=== PATIENT | male | born 1940 | race Caucasian/White ===

== ENCOUNTER 2018-12-15 06:23 | Inpatient (IN) | payer MEDICARE, BC ==
[~2018-12-15] VITALS: Ht 188 cm; Wt 99.5 kg
[~2018-12-15 06:23] MED LIST: ALIGN; CARDI-OMEGA1000 MG PO; COQ(10)1010 MG PO; DUO-KAPS1 CAP PO; FLOMAX0.4 MG PO; FOLIC ACID1 MG PO; IBU PO; LYCOPENE PO; MEDI-FIRST ASP325 MG PO; NATURAL E400 IU PO; NEXIUM 40MG40 MG PEG; NIACIN500 MG PO; RITE AID NATU200 MCG PO; VITAMIN C500 MG PO; ZITHROMAX500 M2 PO
[2018-12-15 07:27] LABS: BASO % 0.2 % (0.0-2.0); EOS % 0.3 % (0-4.0); GRAN % 89.7 % (42.2-75.2); HEMOGLOBIN 11.8 g/dl (13.5-18.0); LYMPH # 0.4 (1.2-3.4); LYMPH % 3.3 % (20.0-51.0); MEAN CELL VOLUME 92 fl (80.0-100.0); MEAN CORPUSCULAR HEMOGLOBIN 32 pg (27.0-31.0); MEAN CORPUSCULAR HGB CONC 35 g/dl (33.0-37.0); MEAN PLATELET VOLUME 9.3 fl (7.4-10.4); MONO # 0.8 (0.1-0.6); MONO % 5.9 % (1.7-9.3); PLATELET COUNT 154 K/mm3 (130-400); RED BLOOD COUNT 3.72 M/mm3 (4.20-5.60); REDCELL DISTRIBUTION WIDTH-CV 13.4 % (11.5-14.5)
[2018-12-15 07:28] LABS: HEMATOCRIT 34.2 % (42.0-52.0)
[2018-12-15 07:33] LABS: COLLECTION METHOD CLEAN CATCH
[2018-12-15 07:37] LABS: ALBUMIN 3.4 gm/dL (3.5-5.0); BILIRUBIN,TOTAL 1.3 mg/dL (0.0-1.0); CALCIUM 8.9 mg/dL (8.4-10.2); CREATININE, serum 0.89 (0.66-1.25); POTASSIUM 3.8 mmol/L (3.4-5.0); TOTAL PROTEIN 6.6 gm/dL (6.4-8.2)
[2018-12-15 07:40] LABS: MUCOUS Present /lpf; PH 6 (5-8); SQUAMOUS EPITHELIAL None Seen /hpf; URINE APPEARANCE Clear; URINE BACTERIA None Seen /hpf; URINE BILIRUBIN Negative (NEGATIVE); URINE BLOOD Negative (NEGATIVE); URINE COLOR Yellow; URINE GLUCOSE Negative (NEGATIVE); URINE KETONE Negative (NEGATIVE); URINE LEUKOCYTE ESTERASE Negative (NEGATIVE); URINE NITRATE Negative (NEGATIVE); URINE PROTEIN(semi-quant) Negative (NEGATIVE); URINE RBC 0-2 /hpf; URINE UROBILINOGEN Negative (NEGATIVE)
[2018-12-15 07:48] LABS: C-REACTIVE PROTEIN 22.9 mg/dL (0.0-0.9)
[2018-12-15] MEDS ORDERED: COMBIGAN 0.2%-0.5 ML OU ×2 (08:37→10:38)
[2018-12-15] MEDS ORDERED: PROSCAR 5MG5 MG PO (08:37)
[2018-12-15] MEDS ORDERED: FLOMAX 0.40.4 MG/CAP PO (08:37)
[2018-12-15] MEDS ORDERED: LUMIGAN 2.5 ML2.5 M1 OP (08:38)
[2018-12-15] MEDS ORDERED: ASPIRIN 81M81 MG/TA2 PO (08:38)
[2018-12-15] MEDS ORDERED: MOTRIN 200200 MG/TAB PO (09:03)
[2018-12-15] MEDS ORDERED: VITAMINC1000TA (09:03)
[2018-12-15] MEDS ORDERED: MULTI VITAMINS1 TAB PO (09:03)
[2018-12-15] MEDS ORDERED: THE MEDICINE S200 M2 PO (09:04)
[2018-12-15] MEDS ORDERED: VITAMIN D 1001000 IU PO (09:04)
[2018-12-15] MEDS ORDERED: VITAMIN E1000 U/CAP (09:04)
[2018-12-15] MEDS ORDERED: SELENOMAX200 MC1 (09:04)
[2018-12-15] MEDS ORDERED: EPA FISH OIL1 SGL PO (09:05)
[2018-12-15] MEDS ORDERED: VITAMIN FLUSH-F1 CAP PO (09:05)
[2018-12-15] MEDS ORDERED: PROBIOTIC-MAJOR PO (09:05)
[2018-12-15] MEDS ORDERED: MAGNESIUM250 M1 PO (09:05)
[2018-12-15] MEDS ORDERED: ASPIRIN 32325 MG/TAB PO (09:52)
[2018-12-15 10:01] VITALS: BP 112/56; PULSE 69; TEMP 98.8
--- NOTE | 2018-12-15 10:15 | NUR ---
PATIENT ADMITED INTO ROOM 323 FROM ER WITH DIVERTICULITIS. A&O. VSS. DENIES PAIN OR NAUSEA AT THIS TIME. PATIENT RECEIVED DILAUDID & ZOFRAN IN ER. IV ZOSYN INFUSING INTO RIGHT FORARM VIA PUMP. ABDOMIN IS SOFT, ROUND AND WITH POSITIVE BOWL SOUNDS. HEAD TO TOE ASSESSMENT WNL. AT BEDSIDE. ORIENTED TO ROOM. CALL LIGHT IN REACH.
[2018-12-15] MEDS ORDERED: VITAMIN C500 MG PO (10:37)
[2018-12-15] MEDS ORDERED: NATURAL MAGNES200 MG PO (10:43)
[2018-12-15 12:01] VITALS: BP 119/55; PULSE 75; TEMP 98.3
--- NOTE | 2018-12-15 13:00 | NUR ---
PATIENT AMBULATING IN HALLWAYS INDEPENDENTLY WITH STEADY GAIT. NO COMPLAINTS AT THIS TIME.
[2018-12-15 15:57] VITALS: BP 115/49; PULSE 81; TEMP 102
[2018-12-15 17:42] VITALS: TEMP 99
[2018-12-15 20:30] VITALS: BP 100/52; PULSE 71; TEMP 97.7
--- NOTE | 2018-12-15 21:00 | NUR ---
Patient is in bed, alert and oriented x4. Has IVF to right forearm infusing without redness or swelling. Abdomen soft, bowel sounds active. Denies pain at this time. Up ad gordon in room and hallway.
[2018-12-16] VITALS: BP 125/60; PULSE 66; TEMP 98.1
--- NOTE | 2018-12-16 04:30 | NUR ---
Patient awake, up to bathroom to urinate. Reports passing gas and some "mucus" like stool only. Denies pain at this time.
[2018-12-16 04:41] VITALS: BP 120/51; PULSE 69; TEMP 98.5
--- NOTE | 2018-12-16 06:58 | NUR ---
Report from Denise KLEIN.
[2018-12-16 07:47] VITALS: BP 121/55; PULSE 65; TEMP 99.1
[2018-12-16 08:20] LABS: BASO % 0.4 % (0.0-2.0); EOS # 0.2 (0.0-0.7); EOS % 1.6 % (0-4.0); GRAN # 9.5 (1.4-6.5); GRAN % 83.5 % (42.2-75.2); HEMOGLOBIN 10.8 g/dl (13.5-18.0); LYMPH # 0.7 (1.2-3.4); LYMPH % 5.8 % (20.0-51.0); MEAN CELL VOLUME 92 fl (80.0-100.0); MEAN CORPUSCULAR HEMOGLOBIN 32 pg (27.0-31.0); MEAN CORPUSCULAR HGB CONC 34 g/dl (33.0-37.0); MEAN PLATELET VOLUME 9.3 fl (7.4-10.4); MONO % 8.3 % (1.7-9.3); PLATELET COUNT 153 K/mm3 (130-400); REDCELL DISTRIBUTION WIDTH-CV 13.5 % (11.5-14.5)
[2018-12-16 08:26] LABS: HEMATOCRIT 31.4 % (42.0-52.0)
[2018-12-16 08:33] LABS: CREATININE, serum 0.86 (0.66-1.25); POTASSIUM 3.6 mmol/L (3.4-5.0)
--- NOTE | 2018-12-16 10:15 | NUR ---
PT UP TO SHOWER INDEPENDENTLY.
--- NOTE | 2018-12-16 12:08 | NUR ---
PT UP TO SHOWER AFTER WALKING HALLS INDEPENDENTLY.
[2018-12-16 12:10] VITALS: BP 120/63; PULSE 64; TEMP 98.3
--- NOTE | 2018-12-16 12:34 | NUR ---
R D Manager offered to pray but nothing needed at this time. R D Manager visited with patient and family in room.
[2018-12-16 17:27] VITALS: BP 126/62; PULSE 70; TEMP 99
--- NOTE | 2018-12-16 18:02 | NUR ---
Plan is to return home with Faye as care support . Patient reportst aht he is independent and able to transport self home. Patint reports that his PCP is Dr. Owens. Patient indicates that he obtains RX from [facility]. Declines the home health services or need. Denies he use of any DME equipment. No additional needs identified.
[2018-12-16 19:40] VITALS: BP 122/53; PULSE 82; TEMP 99.9
--- NOTE | 2018-12-16 21:00 | NUR ---
Patient has been up in chair and up in room independently. Denies pain to abdomen, just feels "bloated" and has gas. Voiding in toilet without problem. IVF infusing to right forearm without redness or swelling. Taking clear liquids, abdomen soft.
[2018-12-17] VITALS (7 sets, daily range): BP systolic 108–145; BP diastolic 51–73; PULSE 58–90; TEMP 97.4–99
--- NOTE | 2018-12-17 04:30 | NUR ---
Patient awake, reports feeling better this AM. Afebrile. Up ad gordon in room.
--- NOTE | 2018-12-17 10:00 | NUR ---
Patient alert and oriented, answers questions appropriately. See assessment. Abdomen soft, non tender, non distended. Bowel sounds active x4 quads. +Flatus. Requests for diet advance. Dr Ruvalcaba in to see patient. No c/o pain or discomfort at this time.
--- NOTE | 2018-12-17 21:00 | NUR ---
Patient had shower this shift. IV site to right forearm without redness or swelling. Takes oral meds at this time. VSS, afebrile. Up ad gordon in room. Tolerating low fiber diet without nausea, reports some bloating. No loose stools reported, denies pain.
[2018-12-18 04:00] VITALS: BP 135/65; PULSE 67; TEMP 97
--- NOTE | 2018-12-18 06:00 | NUR ---
Offers no concerns, reports liquid stool this AM.
[2018-12-18 08:17] VITALS: BP 126/65; PULSE 73; TEMP 98
[2018-12-18] MEDS ORDERED: LEVAQUIN 5500 MG/TA1 PO (11:56)
[2018-12-18] MEDS ORDERED: FLAGYL500 MG PO (11:57)
[2018-12-18 12:58] VITALS: BP 128/69; PULSE 666; TEMP 98.1
--- NOTE | 2018-12-18 14:00 | NUR ---
Discharge instructions reviewed with patient and spouse, verbalized understanding. Discharged ambulatory to auto/home with family at 1400.
--- NOTE | 2018-12-18 14:25 | NUR ---
Patient will discharge home today. SW presented IM to patient. He signed and was provided a copy.
== END 2018-12-18 14:00 | disposition home or self-care (01) | DRG 392 ==
LOC: COL.ER 06:23 → SURG 08:41
PROVIDERS: Emergency Medicine; ADMIT Surgery
DX: K57.20 Diverticulitis of large intestine with perforation and abscess without bleeding (principal); N40.0 Benign prostatic hyperplasia without lower urinary tract symptoms; H40.9 Unspecified glaucoma
CPT/HCPCS: A4216; J0696; J1170; J2405; J2543; J7030; J7120; Q9967

== ENCOUNTER → 2020-02-25 | Outpatient (CLI) | payer BC ==
[~2020-02-25] MED LIST changes: +ASPIRIN 32325 MG/TAB PO; +ASPIRIN 81M81 MG/TA2 PO; +COMBIGAN 0.2%-0.5 ML OU; +EPA FISH OIL1 SGL PO; +FLAGYL500 MG PO; +FLOMAX 0.40.4 MG/CAP PO; +LEVAQUIN 5500 MG/TA1 PO; +LUMIGAN 2.5 ML2.5 M1 OP; +MAGNESIUM250 M1 PO; +MOTRIN 200200 MG/TAB PO; +MULTI VITAMINS1 TAB PO; +NATURAL MAGNES200 MG PO; +PROBIOTIC-MAJOR PO; +PROSCAR 5MG5 MG PO; +SELENOMAX200 MC1; +THE MEDICINE S200 M2 PO; +VITAMIN D 1001000 IU PO; +VITAMIN E1000 U/CAP; +VITAMIN FLUSH-F1 CAP PO; +VITAMINC1000TA
== END ==
LOC: COL.RAD 13:44
DX: M18.12 Unilateral primary osteoarthritis of first carpometacarpal joint, left hand (principal)
CPT/HCPCS: J3301; Q9967

== ENCOUNTER → 2020-03-26 | Outpatient (CLI) | payer BC | LOC: COL.RAD 09:45 | DX: R10.10 Upper abdominal pain, unspecified (principal) ==

== ENCOUNTER 2020-09-22 20:19 | Emergency (ER) | payer BC ==
[~2020-09-22] VITALS: Ht 188 cm; Wt 95.5 kg
[2020-09-22 20:55] VITALS: TEMP 100.5
[2020-09-22 21:47] LABS: BASO # 0.1 (0.0-0.2); BASO % 0.3 % (0.0-2.0); EOS % 0.3 % (0-4.0); GRAN # 13.2 (1.4-6.5); HEMOGLOBIN 11.5 g/dl (13.5-18.0); LYMPH # 0.4 (1.2-3.4); LYMPH % 2.6 % (20.0-51.0); MEAN CELL VOLUME 92 fl (80.0-100.0); MEAN CORPUSCULAR HEMOGLOBIN 32 pg (27.0-31.0); MEAN CORPUSCULAR HGB CONC 35 g/dl (33.0-37.0); MEAN PLATELET VOLUME 9.3 fl (7.4-10.4); MONO # 1.4 (0.1-0.6); MONO % 9.3 % (1.7-9.3); PLATELET COUNT 180 K/mm3 (130-400); RED BLOOD COUNT 3.61 M/mm3 (4.20-5.60); REDCELL DISTRIBUTION WIDTH-CV 13.1 % (11.5-14.5)
[2020-09-22 22:04] LABS: ALANINE AMINOTRANSFERASE 25 U/L (4-49); ALBUMIN 3.5 gm/dL (3.5-5.0); ALKALINE PHOSPHATASE 74 U/L (50-136); ANION GAP 6 mmol/L (7-16); AST,SGOT 37 U/L (15-37); BILIRUBIN,TOTAL 0.5 mg/dL (0.0-1.0); BLOOD UREA NITROGEN 26 mg/dL (9-20); C-REACTIVE PROTEIN 1.1 mg/dL (0.0-0.9); CALCIUM 8.8 mg/dL (8.4-10.2); CARBON DIOXIDE 21 mmol/L (22-30); CHLORIDE 106 mmol/L (98-107); CREATININE, serum 0.83 (0.66-1.25); GLUCOSE 111 mg/dL (74-106); POTASSIUM 3.8 mmol/L (3.4-5.0); SODIUM 133 mmol/L (137-145); TOTAL PROTEIN 6.2 gm/dL (6.4-8.2)
[2020-09-22 22:15] LABS: TROPONIN-I < 0.012 ng/mL (0.000-0.035)
[2020-09-22 22:16] LABS: HEMATOCRIT 33.1 % (42.0-52.0)
[2020-09-22 23:19] LABS: COLLECTION METHOD CLEAN CATCH
[2020-09-22 23:25] LABS: MUCOUS Present /lpf; PH 5 (5-8); SQUAMOUS EPITHELIAL 0-2 /hpf; URINE APPEARANCE Hazy; URINE BACTERIA None Seen /hpf; URINE BILIRUBIN Negative (NEGATIVE); URINE BLOOD Negative (NEGATIVE); URINE COLOR Yellow; URINE GLUCOSE Negative (NEGATIVE); URINE KETONE Negative (NEGATIVE); URINE LEUKOCYTE ESTERASE Negative (NEGATIVE); URINE NITRATE Negative (NEGATIVE); URINE PROTEIN(semi-quant) Negative (NEGATIVE); URINE RBC 0-2 /hpf; URINE UROBILINOGEN Negative (NEGATIVE)
[2020-09-23] MEDS ORDERED: AMOXICILLIN 8751 TAB PO (00:30)
[2020-09-23 00:44] VITALS: BP 108/59; PULSE 78
== END 2020-09-23 00:44 | disposition home or self-care (01) ==
LOC: COL.ER 20:19
PROVIDERS: Emergency Medicine
DX: R50.9 Fever, unspecified (principal); M79.10 Myalgia, unspecified site; Z20.822 Contact with and (suspected) exposure to COVID-19; Z79.82 Long term (current) use of aspirin
CPT/HCPCS: J0696; J7030

== ENCOUNTER → 2020-10-20 | Outpatient (CLI) | payer MEDICARE, BC ==
[~2020-10-20] MED LIST changes: +AMOXICILLIN 8751 TAB PO
== END ==
LOC: COL.RAD 06:34
DX: K82.0 Obstruction of gallbladder (principal)
CPT/HCPCS: A9537; J2805

== ENCOUNTER → 2020-11-20 | Outpatient (CLI) | payer BC | LOC: COL.VAS 08:09 | DX: M79.661 Pain in right lower leg (principal); M79.89 Other specified soft tissue disorders ==

== ENCOUNTER → 2022-02-11 | Outpatient (CLI) | payer BC | LOC: COL.RAD 01-28 08:15 | DX: M25.542 Pain in joints of left hand (principal) | CPT/HCPCS: J3301; Q9967 ==